=== PATIENT | male | born 2000 | race Caucasian/White ===

== ENCOUNTER 2020-08-06 04:19 | Emergency (ER) | payer SELFPAY ==
[~2020-08-06] VITALS: Ht 170.2 cm; Wt 94.3 kg
[2020-08-06 04:20] VITALS: BP 143/74
--- NOTE | 2020-08-06 04:38 | NUR ---
XRAY AT BEDSIDE
[2020-08-06] MEDS ORDERED: HYDROCODONE/APAP 10/325MG TABLET ONE (04:50)
[2020-08-06] MEDS ORDERED: IBUPROFEN 400 MG TABLET ONE (04:50)
[2020-08-06] MEDS ORDERED: HYDR-3972 PO (04:52)
[2020-08-06] MEDS ORDERED: IBUP-1955 PO (04:52)
[2020-08-06] MEDS ORDERED: HYDROCODONE/APAP 10/325MG TABLET PO ONE (05:00)
[2020-08-06] MEDS ORDERED: IBUPROFEN 400 MG TABLET PO ONE (05:00)
--- NOTE | 2020-08-06 05:03 | NUR ---
PATIENT PROVIDED WITH KNEE IMMOBILIZER AND CRUTCHES.
--- NOTE | 2020-08-06 05:04 | NUR ---
GAIT TRAINING PROVIDED. PATIENT IS AMBULATORY WITH STEADY GAIT.
--- NOTE | 2020-08-06 06:04 | NUR ---
Patient discharged to home in stable condition. Written and verbal after care instructions given. Patient verbalizes understanding of instruction.
--- NOTE | 2020-08-06 06:06 | NUR ---
PATIENT IS PICKED UP BY [facility].
== END 2020-08-06 06:06 | disposition home or self-care (01) ==
LOC: ER 04:19
DX: S86.811A Strain of other muscle(s) and tendon(s) at lower leg level, right leg, initial encounter (principal); X50.1XXA Overexertion from prolonged static or awkward postures, initial encounter; Y93.89 Activity, other specified; Y92.89 Other specified places as the place of occurrence of the external cause; Y99.8 Other external cause status
CPT/HCPCS: 73564-TC